=== PATIENT | female | born 1985 | race Caucasian/White ===

== ENCOUNTER 2017-06-01 15:13 | Emergency (ER) | payer OTHER ==
[~2017-06-01] VITALS: Ht 162.6 cm; Wt 105.8 kg
[2017-06-01 15:18] VITALS: BP 141/82
[2017-06-01] MEDS ORDERED: SODIUM CHLORIDE 0.9% 1,000 ML IV ONE (15:50)
[2017-06-01] MEDS ORDERED: SODIUM CHLORIDE FLUSH 10ML SYR IVF ONE (16:00)
[2017-06-01] MEDS ORDERED: ONDANSETRON 2MG/ML, 2ML IVPush ONE (16:00)
[2017-06-01] MEDS ORDERED: HYDROmorphone 1 MG/ML, 1ML ONE ×2 (16:21→17:35)
[2017-06-01] MEDS ORDERED: ONDANSETRON 2MG/ML, 2ML ONE (16:21)
[2017-06-01] MEDS: HYDROmorphone 1 MG/ML, 1ML IVPush PRN ×2 (16:42→17:39)
== END 2017-06-01 18:00 | disposition home or self-care (01) ==
LOC: ED 17:48
DX: G43.909 Migraine, unspecified, not intractable, without status migrainosus (principal)
CPT/HCPCS: 70450; 96361; 96374; 96375; 96376; 99284; J1170; J2405; J7030